=== PATIENT | female | born 1950 | race Caucasian/White ===

== ENCOUNTER 2019-09-01 16:04 | Emergency (ER) | payer BC ==
[~2019-09-01] VITALS: Ht 160 cm; Wt 61.2 kg
[2019-09-01 17:17] LABS: ABSOLUTE NEUTROPHILS 13.5 thou/uL (1.4-8.2); BASOPHILS 0.5 % (0.0-2.0); HEMATOCRIT 40.2 % (37.0-47.0); HEMOGLOBIN 13.7 gm/dL (12.0-15.0); LYMPHOCYTES 3.4 % (24.0-44.0); MCH 31.9 pg (26.0-34.0); MCHC 34.1 g/dL (28.0-37.0); MCV 93.7 fL (80.0-100.0); MONOCYTES 6.9 % (1.0-8.0); PLATELET COUNT 227 thou/uL (150-400); POLYS 89.2 % (36.0-66.0); RBC 4.29 mil/uL (4.20-5.00); RDW 12.6 % (10.5-14.5); WBC 15.2 thou/uL (4.0-11.0)
[2019-09-01 17:25] LABS: ANION GAP 9 mmol/L (7-16); BUN 12 mg/dL (7-18); CALCIUM 8.5 mg/dL (8.5-10.1); CHLORIDE 91 mmol/L (98-107); CO2 26 mmol/L (21-32); CREATININE 1.2 mg/dL (0.6-1.0); GLUCOSE 105 mg/dL (74-106); POTASSIUM 4.2 mmol/L (3.5-5.1); SODIUM 126 mmol/L (136-145)
[2019-09-01 17:25] LABS: URINE BILIRUBIN NEGATIVE (Negative); URINE BLOOD 2+ (Negative); URINE CLARITY CLEAR; URINE COLOR YELLOW; URINE GLUCOSE-RANDOM* NEGATIVE (Negative); URINE KETONES 2+ (Negative); URINE LEUKOCYTES-REFLEX NEGATIVE (Negative); URINE NITRITE-REFLEX NEGATIVE (Negative); URINE PROTEIN (DIPSTICK) TRACE (Negative); URINE SPECIFIC GRAVITY 1.025 (1.005-1.035); URINE UROBILINOGEN 0.2 E.U./dl (0.2-1.0)
[2019-09-01 17:31] LABS: BACTERIA-REFLEX 1-9 Few /HPF (None Seen); CASTS None Seen /LPF (None Seen); CRYSTALS None Seen /LPF (None Seen); SQUAMOUS 0-3 Few /LPF (0-3); URINE RBC 3-10 Few /HPF (0-2); URINE WBC-REFLEX None Seen /HPF (0-5)
[2019-09-01 17:35] LABS: ALBUMIN 3.6 g/dL (3.4-5.0); LIPASE 69 U/L (73-393); SGOT 48 U/L (15-37); SGPT 44 U/L (30-65); TOTAL BILIRUBIN 0.8 mg/dL (<0.1-1.0); TOTAL PROTEIN 7.4 g/dL (6.4-8.2); TROPONIN-I <0.06 ng/mL (<0.06)
[2019-09-01] MEDS ORDERED: TRAMADOL 50 MG50 MG PO (18:48)
[2019-09-01] MEDS ORDERED: NORCO 5-325 TA1 EAC1 PO (18:51)
[2019-09-01] MEDS ORDERED: KEFLEX500 M1 PO (18:57)
[2019-09-01 19:34] VITALS: BP 108/50
--- NOTE | 2019-09-01 23:05 | EKG ---
[facility] [place] [address] ELECTROCARDIOGRAM REPORT Name: TRINIDAD GARCIA Room #: DEP [facility]#: [id number] Admission: 09/01/19 Attend Phys: Discharge: 09/01/19 Date of : 54 Report #: [id number] THIS REPORT FOR: cc: Vernell Bee Rebekah J. DO Couchonnal, Luis F. MD ~ THIS REPORT FOR: //name// [facility] ED Test Date: 2019-09-01 Test Time: 17:02:51 Pat Name: TRINIDAD GARCIA Department: Room: Gender: [employer] Supervisor: [facility] : 1950 Requested By: Terrell Cordero Order Number: [id number] MD: Eder Waggoner Measurements Intervals [place] Rate: 58 P: 74 [place]: 130 QRS: 33 QRSD: 83 T: 14 QT: 430 QTc: 423 Interpretive Statements Sinus rhythm Probable left atrial enlargement No previous ECG available for comparison Electronically Signed On 09-01-2019 23:04:06 CDT by Eder Waggoner [email or web address] <ELECTRONICALLY SIGNED> By: Eder Waggoner MD 09/01/19 2304 01 01 Eder Waggoner MD /[email or web address]
== END 2019-09-01 19:15 | disposition home or self-care (01) ==
LOC: ER 16:04
PROVIDERS: Emergency Medicine
DX: N13.30 Unspecified hydronephrosis (principal); R10.31 Right lower quadrant pain; R10.11 Right upper quadrant pain; E87.1 Hypo-osmolality and hyponatremia; D72.828 Other elevated white blood cell count; R31.29 Other microscopic hematuria; R07.81 Pleurodynia; G89.29 Other chronic pain; Z90.49 Acquired absence of other specified parts of digestive tract; Z90.711 Acquired absence of uterus with remaining cervical stump